=== PATIENT | male | born 1955 | race Caucasian/White ===

== ENCOUNTER 2019-03-21 08:35 | Inpatient (IN) ==
[2019-03-15 14:10] LABS: Appearance,Urine CLEAR; Bilirubin,Urine NEG (NEG); Color,Urine YELLOW; Culture Indicated,Urine NO; Glucose,Urine (UA) NEGATIVE (NEG); Ketones,Urine NEG (NEG); Leukocyte Esterase,Urine NEG /uL (NEG); Nitrate,Urine NEG (NEG); Protein,Urine NEG (NEG); Specific Gravity,Urine 1.018 (1.000-1.035); Urine Blood NEG mg/dL (<0.03); Urobilinogen,Urine NEG (NEG)
[2019-03-15 14:30] LABS: Basophils # (Auto) 0 K/mcL (0.0-0.3); Basophils % (Auto) 0.3 % (0.0-2.0); Eosinophils # (Auto) 0.1 K/mcL (0.0-0.7); Eosinophils % (Auto) 2.3 % (0.0-7.0); Granulocytes % (Auto) 64.5 % (38.0-78.0); Hematocrit 42.4 % (41.0-55.0); Hemoglobin 14.1 g/dL (13.5-16.5); Lymphocytes # (Auto) 1.4 K/mcL (1.5-4.8); Lymphocytes % (Auto) 23.6 % (15.5-49.0); Mean Cell Volume 90.2 fL (80.0-100.0); Mean Corpuscular HGB Conc 33.3 g/dL (31.0-36.0); Mean Platelet Volume 8.8 fL (7.4-10.4); Monocytes # (Auto) 0.6 K/mcL (0.1-0.9); Monocytes % (Auto) 9.3 % (1.0-12.0); Platelet Count 188 K/mcL (140-440); WBC 6.1 K/mcL (4.5-11.0)
[2019-03-15 14:37] LABS: Blood Urea Nitrogen 25 mg/dl (8-23); Calcium 9.9 mg/dl (8.6-10.4); Carbon Dioxide 30 mmol/L (22-30); Chloride 99 mmol/L (96-108); Glomerular Filtration Rate 70; Glucose 83 mg/dL (70-105)
[2019-03-15 14:59] LABS: Prothrombin Time 13.7 sec (11.9-14.5)
[~2019-03-21 08:35] MED LIST: 0.9 % SODIUM CHLORIDE 9 ML, KETOROLAC 30 MG, ROPIVACAINE HCL/PF 49.5 ML, EPINEPHrine 0.... IJ SCH; ACETAMINOPHEN 500 MG TABLET PO SCH; CELECOXIB 200 MG CAPSULE PO SCH; IPRATROPIUM/ALBUTEROL 3 ML AMPUL.NEB NEB PRN; PREGABALIN 75 MG CAPSULE PO SCH; SCOPOLAMINE 1 PATCH PATCH TOPICAL PRN; ceFAZolin 3 GM in DEXTROSE 5% IN WATER 50 ML IV SCH; oxyCODONE 10 MG TAB.ER.12H PO SCH
[2019-03-21] MEDS ORDERED: GENTAMICIN SULFATE 800 MG/20 ML VIAL IR ONE (09:53)
[2019-03-21] MEDS ORDERED: MIDAZOLAM 2 MG/2 ML VIAL IV ONE (11:03)
[2019-03-21] MEDS ORDERED: SUGAMMADEX SODIUM 200 MG/2 ML VIAL IV ONE (11:03)
[2019-03-21] MEDS ORDERED: PROPOFOL 200 MG/20 ML VIAL IV ONE (11:03)
[2019-03-21] MEDS ORDERED: GLYCOPYRROLATE 0.2 MG/ML VIAL IV ONE (11:03)
[2019-03-21] MEDS ORDERED: DEXAMETHASONE 10 MG/ML VIAL IV ONE (11:03)
[2019-03-21] MEDS ORDERED: LIDOCAINE HCL/PF 100 MG/5 ML SYRINGE IV ONE (11:03)
[2019-03-21] MEDS ORDERED: KETAMINE 100 MG/ML ML IV ONE (11:03)
[2019-03-21] MEDS ORDERED: TRANEXAMIC ACID 1,000 MG/10 ML VIAL IV ONE (11:03)
[2019-03-21] MEDS ORDERED: ROPIVACAINE HCL/PF 20 ML VIAL IJ ONE (11:03)
[2019-03-21] MEDS ORDERED: ONDANSETRON 4 MG/2 ML VIAL IV ONE (11:03)
[2019-03-21] MEDS ORDERED: PHENYLEPHRINE 10 MG/ML VIAL IV ONE (11:03)
[2019-03-21] MEDS ORDERED: NALOXONE HCL 0.4 MG/ML VIAL IV PRN (12:06)
[2019-03-21] MEDS ORDERED: diphenhydrAMINE 50 MG/ML VIAL IV PRN (12:06)
[2019-03-21] MEDS ORDERED: fentaNYL 100 MCG/2 ML VIAL IV PRN (12:06)
[2019-03-21] MEDS ORDERED: ONDANSETRON 4 MG/2 ML VIAL IV PRN ×2 (12:06→12:27)
[2019-03-21] MEDS ORDERED: FLUMAZENIL 0.1 MG/ML ML IV PRN (12:06)
[2019-03-21] MEDS ORDERED: IPRATROPIUM/ALBUTEROL 3 ML AMPUL.NEB NEB PRN (12:06)
[2019-03-21] MEDS ORDERED: PROMETHAZINE 25 MG/ML VIAL IV PRN (12:06)
[2019-03-21] MEDS ORDERED: MEPERIDINE 25 MG/ML SYRINGE IV PRN (12:06)
[2019-03-21] MEDS ORDERED: LACTATED RINGERS 250 ML IV PRN (12:06)
[2019-03-21] MEDS ORDERED: LACTATED RINGERS 1,000 ML IV SCH (12:15)
[2019-03-21] MEDS ORDERED: BISACODYL 10 MG SUPP.RECT PR PRN (12:27)
[2019-03-21] MEDS ORDERED: MAGNESIUM HYDROXIDE 30 ML ORAL.SUSP PO PRN (12:27)
[2019-03-21] MEDS ORDERED: POLYETHYLENE GLYCOL 3350 17 GM PACKET PO PRN (12:27)
[2019-03-21] MEDS ORDERED: FLEETS ADULT ENEMA PR PRN (12:27)
[2019-03-21] MEDS ORDERED: ACETAMINOPHEN 325 MG TABLET PO PRN (12:27)
[2019-03-21] MEDS ORDERED: TRANEXAMIC ACID 1,000 MG/10 ML VIAL IV SCH (12:27)
--- NOTE | 2019-03-21 12:27 | Brief Operative Note ---
Date of procedure: 03/21/19 Pre-op diagnosis: Left knee loose legaments and dislocation Post-op diagnosis: same Procedure: Left knee revision one component ie poly liner Grafts/Implants: Yes Anesthesia: CORINAA Surgeon: Dieter Garcia Serging Machine Operator Automatic: Yonas Brown Estimated blood loss (cc): 20 Tourniquet Time (Minutes): 23 Specimens Removed/Pathology: none sent Condition: stable Disposition: PACU
--- NOTE | 2019-03-21 12:52 | Operative Note ---
DATE OF OPERATION: 03/21/2019 PREOPERATIVE DIAGNOSIS: Left knee loose ligaments and dislocations. POSTOPERATIVE DIAGNOSES: 1. Left knee loose ligaments and dislocations. 2. Left failed poly post from [place]. PROCEDURE: Left knee revision, one component poly liner to an 18 mm polyethylene with a new post. SURGEON: Dieter Garcia M.D. INTERIOR DESIGN COORDINATOR: Yonas Brown PA-C. The PA's assistance was required for the safe and efficient completion of the entire case. This provider's expertise and technical skill were required throughout the case. The PA assisted with preoperative coordination, intraoperative retraction, wound closure, dressing and splint application, as well as postoperative documentation and care coordination. TOURNIQUET TIME: Approximately 23 minutes. ESTIMATED BLOOD LOSS: 20 mL. COMPLICATIONS: None. SPECIMEN: Specimen sent revealed 1 white blood cell per high-power field. DESCRIPTION OF PROCEDURE: The patient was brought to the operating room and put to sleep with general LMA anesthesia. Once asleep, the patient had the left leg sterilely prepped and draped in the usual sterile fashion. Time out was performed to confirm the operative site. Once this was done by initials, consent form, and x-rays we then confirmed preop antibiotics had been given and tranexamic acid. Once we confirmed that they had been given, we proceeded with the case. The leg was exsanguinated and inflated the tourniquet to 275 pounds of pressure. We made a midline incision and a midvastus approach performed. Ioban was used to protect the skin from the operative field. We opened the capsule. Once done, we then took a specimen from the superior pouch. This was sent for pathology and high-power davis. Once this was done, we then proceeded with the revision. We removed the baseplate where there were signs that the knee had dislocated or subluxed over the post with the top part of the post missing. This was then removed. The poly liner was a 13 mm. We trialed the 15, though it was still somewhat loose. We then went up the only next size we could choose from which was an 18. The 18 was snug but achieved full range of motion in both flexion and extension and full range of motion achieved. We irrigated thoroughly and implanted the final implant with an 18 mm revision poly liner with a slightly taller post, and it was 18 mm thick instead of 13 as the original. We irrigated thoroughly once more. We then received the results back from Pathology. The pathology showed 1 white blood cell per high-power field indicating no infection. No more samples were taken. We irrigated thoroughly and closed the capsule with #1 Stratafix x2. We closed the skin with Stratafix and adhesive closure. The patient tolerated this well. There was no complication. Tourniquet was deflated at 23 minutes. A sterile bandage was applied. [email or web address] Job ID: [id number] Doc ID: [id number] Dieter Garcia MD
[2019-03-21] MEDS: BENZOCAINE/MENTHOL 1 LOZENGE PO PRN ×3 (13:28→23:32)
--- NOTE | 2019-03-21 13:32 | XRay Report ---
CLINICAL INFORMATION: Status post left total knee arthroplasty TECHNIQUE: AP and crosstable lateral left knee COMPARISON: None. FINDINGS: Status post left total knee arthroplasty. Prosthetic components are in anatomic positions. There is mild postsurgical soft tissue and intra-articular gas IMPRESSION: Status post left total knee arthroplasty Interpreted and Authenticated by: Jose Shaw 03/21/19
[2019-03-21] MEDS: LACTATED RINGERS 1,000 ML IV SCH ×2 (14:25→18:52)
[2019-03-21] MEDS: 0.9 % SODIUM CHLORIDE 10 ML SYRINGE IV SCH ×2 (14:25→21:49)
[2019-03-21] MEDS: HYDROcodone/APAP 10/325MG TABLET PO PRN ×2 (16:20→21:40)
[2019-03-21] MEDS: HYDROmorphone 2 MG/ML VIAL IV PRN (16:21)
[2019-03-21] MEDS: KETOROLAC 15 MG/ML VIAL IV SCH ×2 (16:21→23:37)
[2019-03-21] MEDS: ceFAZolin 1 GM VIAL IV SCH (18:52)
[2019-03-21] MEDS ORDERED: SENNOSIDES 1 TABLET PO SCH (21:00)
[2019-03-21] MEDS ORDERED: TEMAZEPAM 15 MG CAPSULE PO PRN (21:00)
[2019-03-21] MEDS: DOCUSATE SODIUM 100 MG CAPSULE PO SCH (21:39)
[2019-03-21] MEDS: ASPIRIN 325 MG ENTERIC COATED TABLET PO SCH (21:41)
[2019-03-22] MEDS: HYDROcodone/APAP 10/325MG TABLET PO PRN ×3 (01:45→12:05)
[2019-03-22] MEDS: LACTATED RINGERS 1,000 ML IV SCH (01:46)
[2019-03-22] MEDS: ceFAZolin 1 GM VIAL IV SCH (03:13)
[2019-03-22] MEDS: 0.9 % SODIUM CHLORIDE 10 ML SYRINGE IV SCH (05:33)
[2019-03-22] MEDS: KETOROLAC 15 MG/ML VIAL IV SCH ×2 (05:57→12:13)
[2019-03-22] MEDS: HYDROmorphone 2 MG/ML VIAL IV PRN ×2 (07:04→10:10)
--- NOTE | 2019-03-22 07:53 | Orthopedic Progress Note ---
Subjective Patient information: Note initiated : 03/22/19 at 7:53 am Service Date, if different from initiated Date: [] Patient: Abelardo Oden 64 y/o M admitted on 03/21/19 for Left Knee Revision Arthroplasty. Chief Complaint: [Pt is stable this morning on post operative day 1 without any significant concerns or complaints. Patients vital signs have remained stable. Patients dressing is dry and is grossly intact from a neurovascular and motor standpoint. Patients 10 point ROS is otherwise negative. ] Objective Vital signs: Vital Signs Temp Pulse Pulse Resp BP Pulse Ox 03/22/19 02:55 97.8 F 62 20 123/66 94 03/21/19 23:05 97.9 F 89 20 113/68 92 03/21/19 19:34 93 03/21/19 19:25 98.7 F 96 H 22 122/72 93 03/21/19 17:25 97.9 F 94 H 18 125/72 95 03/21/19 16:30 70 03/21/19 15:25 77 18 129/74 96 03/21/19 15:10 79 16 120/67 96 03/21/19 14:55 71 16 133/78 97 03/21/19 14:40 97.1 F 66 18 136/77 97 03/21/19 14:03 97 F 62 16 128/72 95 03/21/19 13:58 95 03/21/19 13:32 97.9 F 66 11 L 134/96 96 03/21/19 13:17 97.2 F 73 14 128/68 95 03/21/19 13:02 97.5 F 72 15 116/64 95 03/21/19 12:57 74 12 108/53 95 03/21/19 12:52 77 13 107/54 99 03/21/19 12:47 97.9 F 80 12 106/55 96 03/21/19 09:30 97.9 F 69 20 148/82 95 03/21/19 09:16 97.9 F 69 20 148/82 98 Intake and Output 03/21/19 03/22/19 03/22/19 21:59 05:59 13:59 Intake Total 1440 1300 1240 Output Total 750 950 Balance 050 858 5108 Intake: IV 1000 Lactated Ringers 1,000 ml @ 100 1000 mls/hr IV .Q10H MIRLANDE Rx#: [id number] Oral 1440 1300 240 Output: Void Amount 750 950 Other: Meal Lunch Nourishment/Supplement Percent of Meal Consumed 100% 100% Feeding Ability Independent Independent Nourishment/Supplement name Icecream Urine Appearance Clear Clear Urine Color Light Tessa Bright Yellow Urine Odor Normal Normal Weight 314 lb 9.6 oz Intake & Output: Intake & Output 03/21/19 03/22/19 03/22/19 21:59 05:59 13:59 Intake Total 1440 1300 1240 Output Total 750 950 Balance 179 759 6910 Weight 314 lb 9.6 oz Intake: IV 1000 Lactated Ringers 1,000 ml @ 100 1000 mls/hr IV .Q10H MIRLANDE Rx#: [id number] Oral 1440 1300 240 Output: Void Amount 750 950 Other: Meal Lunch Nourishment/Supplement Percent of Meal Consumed 100% 100% Feeding Ability Independent Independent Nourishment/Supplement name Icecream Urine Appearance Clear Clear Urine Color Light Tessa Bright Yellow Urine Odor Normal Normal Incision: Yes healing Incision clean and dry: Yes Dressing: Yes clean Weight bearing status: full Neurological exam IM: Yes motor sensory intact, Yes neurovascular intact Extremities exam IM: Yes Foot pink and warm, Yes neurovascular intact - Labs CBC & BMP: 03/22/19 04:40 03/15/19 11:46 Labs: Orthopedic Labs 03/15/19 11:46 PT 13.7 INR 1.0 APTT 31 03/22/19 03/15/19 04:40 11:46 Hgb 14.1 Hct 36.1 L 42.4 Assessment and Plan (1) History of revision of total knee arthroplasty The patient has been educated regarding dressing care, Physical Therapy recommendations, home exercises, restrictions, and follow up appointments. The patient has had all necessary DME prescribed. The patient has remained relative ly stable during their hospital course. Leave Dermabond patch intact until followup Status: Acute
--- NOTE | 2019-03-22 07:55 | Discharge Summary ---
Ortho Discharge - TKA - Patient Instructions Diet: Regular Diet Activity: activity as tolerated, weight bearing as tolerated Total Knee Protocol: For Total Knee: Start ROM COURTNEY with stationary bike or rocking chair. Work on gaining full extension of knee. Posterior dislocation precautions provided. Hip abductor strengthening and gait training instructions provided. Apply Cryocuff as instructed. Dressing Care: May shower in 2 days - Problem Maintenance (1) History of revision of total knee arthroplasty Status: Acute - Follow Up Plan Follow Up Appointments: Yonas Brown PA-C [Physician Supervisor Dry Cleaning] - 04/05/19 11:20 am Disposition: Home, Self-Care Prognosis: Good Rehab Potential: Good I certify that the patient requires SNF services: No Overall status at discharge: patient is progressing back to baseline - Orders For Discharge Prescriptions: Docusate Sodium [Colace] 100 mg PO BID #60 cap Transmission Status: Pending to [facility] Aspirin [Ecotrin] 325 mg PO BID #60 tab.ec Transmission Status: Pending to [facility] HYDROcodone/APAP 10/325MG [[place] 10-325Mg] 1 - 2 tab PO Q4HP PRN #75 tab PRN Reason: Pain Level 3-6 Prescription Printed
[2019-03-22] MEDS: DOCUSATE SODIUM 100 MG CAPSULE PO SCH (10:10)
[2019-03-22] MEDS: ASPIRIN 325 MG ENTERIC COATED TABLET PO SCH (10:10)
--- NOTE | 2019-03-22 10:45 | Surgical Pathology Report ---
HISTOLOGY SPECIMEN MICROSCOPIC DIAGNOSIS SOFT TISSUE, LEFT KNEE, SUPERIOR POUCH, EXCISION: -- FIBROADIPOSE AND SYNOVIAL TISSUE WITH CHRONIC INFLAMMATION. -- NO SIGNIFICANT NEUTROPHILIC INFLAMMATION IDENTIFIED (LESS THAN ONE NEUTROPHIL/hpf). (DMT:sln) INTRAOPERATIVE CONSULTATION FROZEN SECTION DIAGNOSIS ([facility] [place] [place] [place] FSA - SOFT TISSUE, LEFT KNEE, SUPERIOR POUCH, EXCISION: -- LESS THAN ONE NEUTROPHIL/hpf. (DMT:sln) PROCEDURAL IMPRESSION Left knee instability. GROSS DESCRIPTION Received fresh for frozen section consultation labeled left knee superior pouch, is a 3.8 x 1.3 x 0.6 cm dukes-yellow fibrofatty soft tissue fragment. The fragment is sectioned, entirely submitted for frozen section consultation and resubmitted as FSA. (DMT:sln) Electronically Signed by: Freddy Farias M.D.
== END 2019-03-22 12:45 | disposition home or self-care (01) | DRG 488 ==
LOC: MEDSUR 08:35
PROVIDERS: ADMIT Orthopaedic Surgery; ATTEND Orthopaedic Surgery